=== PATIENT | female | born 1950 | race Hispanic/Latino ===

== ENCOUNTER → 2018-08-01 | Outpatient (CLI) | payer MEDICARE, OTHER | END | disposition home or self-care (01) | LOC: RAH 08:30 | PROVIDERS: ATTEND Family Medicine | DX: Z12.31 Encounter for screening mammogram for malignant neoplasm of breast (principal); I10 Essential (primary) hypertension | CPT/HCPCS: 77067 ==

== ENCOUNTER → 2018-08-30 | Outpatient (CLI) | payer MEDICARE, OTHER | END | disposition home or self-care (01) | LOC: RAH 13:39 | PROVIDERS: ATTEND Family Medicine | DX: N63.11 Unspecified lump in the right breast, upper outer quadrant (principal) | CPT/HCPCS: 76641; 77065 ==

== ENCOUNTER 2021-01-28 11:26 | Emergency (ER) | payer MEDICARE, OTHER ==
[2021-01-28 12:04] LABS: APPEARANCE,URINE Clear (CLEAR); BILIRUBIN,URINE Negative (NEGATIVE); COLOR,URINE Yellow (YELLOW); GLUCOSE, URINE (UA) Negative (NEGATIVE); KETONES,URINE Negative (NEGATIVE); LEUKOCYTE ESTERASE ,URINE Negative (NEGATIVE); NITRATE,URINE Negative (NEGATIVE); OCCULT BLOOD,URINE Small (NEGATIVE); PH,URINE 6.5 (5.0-8.0); PROTEIN,URINE Negative (NEGATIVE); UROBILINOGEN,URINE 0.2 mg/dL (0.2-1.0)
[2021-01-28 12:17] LABS: CREATININE 0.7 mg/dL (0.5-1.5); POTASSIUM 4.1 mmol/L (3.5-5.1)
[2021-01-28 12:22] LABS: BILIRUBIN,TOTAL 0.9 mg/dL (0.2-1.0); TOTAL PROTEIN, SERUM 7.7 g/dL (6.0-8.3)
[2021-01-28 12:25] LABS: BACTERIA,URINE Rare /HPF (None Seen); SQUAMOUS EPITHELIAL CELL,UR 0-2 /HPF (0-2); WBC,URINE 0-1 /HPF (0-1)
[2021-01-28 12:39] LABS: B-TYPE NATRIURETIC PEPTIDE 40 pg/mL (0-100)
[2021-01-28 12:42] LABS: BASOPHILS % (AUTO) 0.5 % (0.0-5.0); EOSINOPHILS % (AUTO) 1.9 % (0.0-8.0); HEMATOCRIT 40.7 % (36-48); MEAN CORPUSCULAR HEMOGLOBIN 29.5 pg (27.0-33.0); MEAN CORPUSCULAR HGB CONC 32.9 g/dL (32.0-36.0); MEAN CORPUSCULAR VOLUME 89.6 fL (79-99); MONOCYTES % (AUTO) 7.5 % (3.0-13.0); NEUTROPHILS % (AUTO) 69.9 % (40.0-77.0); PLATELET COUNT (AUTO) 235 K/uL (130-400); RED BLOOD CELL COUNT(AUTO) 4.54 MIL/uL (4.00-5.50); RED CELL DISTRIBUTION WIDTH 12.6 % (11.0-15.5); WHITE BLOOD COUNT (AUTO) 6.3 K/uL (4.8-10.8)
== END 2021-01-28 13:06 | disposition home or self-care (01) ==
LOC: EDH 11:26
DX: S29.012A Strain of muscle and tendon of back wall of thorax, initial encounter (principal); S39.012A Strain of muscle, fascia and tendon of lower back, initial encounter; B34.9 Viral infection, unspecified; X58.XXXA Exposure to other specified factors, initial encounter; Y93.89 Activity, other specified; Y92.89 Other specified places as the place of occurrence of the external cause; Y99.8 Other external cause status
CPT/HCPCS: 36415; 71045; 80053; 81001; 83880; 84484; 85025; 93005

== ENCOUNTER → 2021-02-17 | Outpatient (CLI) | payer OTHER | END | disposition home or self-care (01) | LOC: RAH 02-12 09:04 | PROVIDERS: ATTEND Family Medicine | DX: R10.32 Left lower quadrant pain (principal) | CPT/HCPCS: 76700 ==

== ENCOUNTER 2022-01-05 19:22 | Emergency (ER) | payer OTHER ==
[2022-01-05] MEDS ORDERED: LACTATED RINGERS 1000ML 1,000 ML IV ONE (19:30)
[2022-01-05] MEDS ORDERED: PANTOPRAZOLE 40 MG/VIAL IVP ONE (19:30)
[2022-01-05] MEDS ORDERED: ASPIRIN 81MG CHEW TAB PO ONE (19:30)
[2022-01-05 19:43] LABS: BASOPHILS % (AUTO) 0.4 % (0.0-5.0); EOSINOPHILS % (AUTO) 1.4 % (0.0-8.0); HEMATOCRIT 39.7 % (36-48); MEAN CORPUSCULAR HEMOGLOBIN 30.1 pg (27.0-33.0); MEAN CORPUSCULAR VOLUME 91.3 fL (79-99); MONOCYTES % (AUTO) 7.8 % (3.0-13.0); NEUTROPHILS % (AUTO) 71.2 % (40.0-77.0); PLATELET COUNT (AUTO) 201 K/uL (130-400); RED BLOOD CELL COUNT(AUTO) 4.35 MIL/uL (4.00-5.50); RED CELL DISTRIBUTION WIDTH 12.5 % (11.0-15.5); WHITE BLOOD COUNT (AUTO) 8.1 K/uL (4.8-10.8)
[2022-01-05 19:54] LABS: CREATININE 0.7 mg/dL (0.5-1.5); POTASSIUM 3.7 mmol/L (3.5-5.1)
[2022-01-05 20:00] LABS: ALBUMIN 3.6 g/dL (3.5-5.0); BILIRUBIN,TOTAL 0.3 mg/dL (0.2-1.0); TOTAL PROTEIN, SERUM 7.6 g/dL (6.0-8.3)
[2022-01-05 20:13] LABS: B-TYPE NATRIURETIC PEPTIDE 27 pg/mL (0-100)
[2022-01-05 20:13] LABS: APPEARANCE,URINE Clear (CLEAR); BILIRUBIN,URINE Negative (NEGATIVE); COLOR,URINE Yellow (YELLOW); GLUCOSE, URINE (UA) Negative (NEGATIVE); KETONES,URINE Negative (NEGATIVE); LEUKOCYTE ESTERASE ,URINE Small (NEGATIVE); NITRATE,URINE Negative (NEGATIVE); OCCULT BLOOD,URINE Small (NEGATIVE); PROTEIN,URINE Negative (NEGATIVE)
[2022-01-05 20:23] LABS: BACTERIA,URINE Rare /HPF (None Seen); RBC,URINE 0-1 /HPF (0-1); SQUAMOUS EPITHELIAL CELL,UR 0-2 /HPF (0-2); WBC,URINE 0-1 /HPF (0-1)
[2022-01-05] MEDS ORDERED: LIDOCAINE HCL 2% VISCOUS 15 ML UDCUP PO ONE (20:30)
[2022-01-05] MEDS ORDERED: DICYCLOMINE HCL 10 MG/5 ML ML PO ONE (20:30)
[2022-01-05] MEDS ORDERED: MAG/ALUM/SIMETH 30 ML UDCUP PO ONE (20:30)
[2022-01-05] MEDS ORDERED: FAMO20TA8 PO (21:18)
[2022-01-05 21:45] VITALS: BP 162/72
== END 2022-01-05 22:01 | disposition home or self-care (01) ==
LOC: EDH 19:22
DX: K29.70 Gastritis, unspecified, without bleeding (principal); R07.89 Other chest pain; R06.02 Shortness of breath; R00.2 Palpitations
CPT/HCPCS: 36415; 71045; 80053; 81001; 83880; 84484 ×2; 85025; 93005; 96361 ×2; 96374; 99285; C9113; J7120

== ENCOUNTER 2022-04-10 07:36 | Emergency (ER) | payer OTHER ==
[~2022-04-10] VITALS: Ht 160 cm; Wt 82.6 kg
[~2022-04-10 07:36] MED LIST: FAMO20TA8 PO
[2022-04-10 08:16] LABS: BASOPHILS % (AUTO) 0.3 % (0.0-5.0); EOSINOPHILS % (AUTO) 1.9 % (0.0-8.0); HEMATOCRIT 40.5 % (36-48); LYMPHOCYTES % (AUTO) 18.2 % (21.0-51.0); MEAN CORPUSCULAR HGB CONC 32.8 g/dL (32.0-36.0); MEAN CORPUSCULAR VOLUME 91.2 fL (79-99); MONOCYTES % (AUTO) 7.3 % (3.0-13.0); NEUTROPHILS % (AUTO) 72.1 % (40.0-77.0); PLATELET COUNT (AUTO) 199 K/uL (130-400); RED BLOOD CELL COUNT(AUTO) 4.44 MIL/uL (4.00-5.50); RED CELL DISTRIBUTION WIDTH 12.5 % (11.0-15.5); WHITE BLOOD COUNT (AUTO) 5.7 K/uL (4.8-10.8)
[2022-04-10 08:17] LABS: APPEARANCE,URINE Clear (CLEAR); BILIRUBIN,URINE Negative (NEGATIVE); COLOR,URINE Yellow (YELLOW); GLUCOSE, URINE (UA) Negative (NEGATIVE); KETONES,URINE Negative (NEGATIVE); LEUKOCYTE ESTERASE ,URINE Trace (NEGATIVE); NITRATE,URINE Negative (NEGATIVE); OCCULT BLOOD,URINE Small (NEGATIVE); PROTEIN,URINE Negative (NEGATIVE); UROBILINOGEN,URINE 0.2 mg/dL (0.2-1.0)
[2022-04-10 08:36] LABS: BACTERIA,URINE Rare /HPF (None Seen); RBC,URINE 0-1 /HPF (0-1); SQUAMOUS EPITHELIAL CELL,UR 0-2 /HPF (0-2); WBC,URINE 0-1 /HPF (0-1)
[2022-04-10 08:42] LABS: ALBUMIN 3.7 g/dL (3.5-5.0); BILIRUBIN,TOTAL 0.4 mg/dL (0.2-1.0); CREATININE 0.6 mg/dL (0.5-1.5); TOTAL PROTEIN, SERUM 7.7 g/dL (6.0-8.3)
[2022-04-10 08:57] VITALS: BP 147/71
== END 2022-04-10 09:05 | disposition home or self-care (01) ==
LOC: EDH 07:36
DX: R52 Pain, unspecified (principal); E78.00 Pure hypercholesterolemia, unspecified; I10 Essential (primary) hypertension; Z79.899 Other long term (current) drug therapy; Z98.890 Other specified postprocedural states
CPT/HCPCS: 36415; 80053; 81001; 83690; 84484; 85025; 93005

== ENCOUNTER → 2022-04-20 | Outpatient (CLI) | payer OTHER ==
[2022-04-20 08:20] LABS: INR 1.03 (0.85-1.15); PROTHROMBIN TIME 11.2 SEC (9.6-11.6)
[2022-04-20 08:21] LABS: PARTIAL THROMBOPLASTIN TIME 29.8 SEC (26.3-35.5)
== END | disposition home or self-care (01) ==
LOC: LAB 07:53
PROVIDERS: ATTEND Otolaryngology Plastic Surgery within the Head & Neck
DX: Z01.812 Encounter for preprocedural laboratory examination (principal); E04.1 Nontoxic single thyroid nodule
CPT/HCPCS: 36415; 85610; 85730

== ENCOUNTER → 2022-04-22 | Outpatient (CLI) | payer OTHER ==
[~2022-04-22] MED LIST changes: +LIDOCAINE HCL 1% MDV 50ML VIAL ONE
== END | disposition home or self-care (01) ==
LOC: RAH 07:30
PROVIDERS: ATTEND Otolaryngology Plastic Surgery within the Head & Neck
DX: E04.1 Nontoxic single thyroid nodule (principal); Z79.82 Long term (current) use of aspirin; Z90.49 Acquired absence of other specified parts of digestive tract; Z98.49 Cataract extraction status, unspecified eye; Z98.51 Tubal ligation status; Z98.890 Other specified postprocedural states
CPT/HCPCS: 10005; 88173; 88305; J3490

== ENCOUNTER 2023-06-25 08:12 | Inpatient (IN) | payer OTHER ==
[~2023-06-25] VITALS: Ht 160 cm; Wt 85.5 kg
[~2023-06-25 08:12] MED LIST changes: -LIDOCAINE HCL 1% MDV 50ML VIAL ONE
[2023-06-25] MEDS ORDERED: CEFTRIAXONE 2GM VIAL IVPB ONE (08:30)
[2023-06-25 08:43] LABS: BASOPHILS # (AUTO) 0.03 K/uL (0.00-0.20); BASOPHILS % (AUTO) 0.2 % (0.0-5.0); EOSINOPHILS # (AUTO) 0.04 K/uL (0.00-0.70); EOSINOPHILS % (AUTO) 0.3 % (0.0-8.0); HEMATOCRIT 38.1 % (36-48); IMMATURE GRANULOCYTE ABSOLUTE 0.06 K/uL (0-1); LYMPHOCYTES # (AUTO) 0.6 K/uL (1.0-4.8); LYMPHOCYTES % (AUTO) 4.3 % (21.0-51.0); MEAN CORPUSCULAR HEMOGLOBIN 29.5 pg (27.0-33.0); MEAN CORPUSCULAR HGB CONC 33.1 g/dL (32.0-36.0); MEAN CORPUSCULAR VOLUME 89.2 fL (79-99); MONOCYTES # (AUTO) 0.2 K/uL (0.1-1.0); NEUTROPHILS # (AUTO) 13.6 K/uL (1.8-7.7); NEUTROPHILS % (AUTO) 93.8 % (40.0-77.0); PLATELET COUNT (AUTO) 194 K/uL (130-400); RED BLOOD CELL COUNT(AUTO) 4.27 MIL/uL (4.00-5.50); RED CELL DISTRIBUTION WIDTH 13.5 % (11.0-15.5); WHITE BLOOD COUNT (AUTO) 14.5 K/uL (4.8-10.8)
[2023-06-25 08:55] LABS: INR 0.99 (0.85-1.15); PROTHROMBIN TIME 11.5 SEC (9.6-11.6)
[2023-06-25 08:57] LABS: PARTIAL THROMBOPLASTIN TIME 26.9 SEC (26.3-35.5)
[2023-06-25] MEDS ORDERED: ACETAMINOPHEN 500 MG TABLET PO ONE (09:00)
[2023-06-25] MEDS ORDERED: 0.9%NACL 1000ML 1,572 ML IV ONE (09:00)
[2023-06-25 09:08] LABS: CREATININE 0.9 mg/dL (0.5-1.5); POTASSIUM 3.5 mmol/L (3.5-5.1)
[2023-06-25 09:13] LABS: ALBUMIN 3.6 g/dL (3.5-5.0); BILIRUBIN,TOTAL 1.3 mg/dL (0.2-1.0)
[2023-06-25 09:24] LABS: APPEARANCE,URINE CLOUDY (CLEAR); BILIRUBIN,URINE NEGATIVE (NEGATIVE); COLOR,URINE YELLOW (YELLOW); GLUCOSE, URINE (UA) NEGATIVE (NEGATIVE); KETONES,URINE 5 mg/dL (NEGATIVE); LEUKOCYTE ESTERASE ,URINE 500 Leu/uL (NEGATIVE); NITRATE,URINE 2+ (NEGATIVE); OCCULT BLOOD,URINE LARGE (NEGATIVE); PH,URINE 5.5 (5.0-8.0); PROTEIN,URINE 200 mg/dL (NEGATIVE); UROBILINOGEN,URINE 0.2 mg/dL (0.2-1.0)
[2023-06-25 09:34] LABS: ADD UA MICROSCOPIC YES
[2023-06-25 09:45] LABS: BACTERIA,URINE MOD /HPF (None Seen); MUCUS,URINE RARE LPF (None Seen); SQUAMOUS EPITHELIAL CELL,UR RARE /HPF (0-2); WBC CLUMP FEW /HPF (0-1); WBC,URINE 51-100 /HPF (0-1)
[2023-06-25 09:52] LABS: SARS-CoV-2, RNA, NAAT NEGATIVE SARS CoV-2 (NEGATIVE)
[2023-06-25 09:56] LABS: INFLUENZA TYPE A Negative For Type A (NEGATIVE); INFLUENZA TYPE B Negative For Type B (NEGATIVE)
[2023-06-25] MEDS ORDERED: POTASSIUM CHLORIDE 20MEQ/100ML 100 ML IV PRN (10:30)
[2023-06-25] MEDS ORDERED: ALBUTEROL 0.083% 2.5 MG/3 ML INH IH PRN (10:30)
[2023-06-25] MEDS ORDERED: CLONIDINE HCL 0.1 MG TABLET PO PRN (10:30)
[2023-06-25] MEDS ORDERED: ACETAMINOPHEN 325 MG TAB PO PRN (10:30)
[2023-06-25] MEDS ORDERED: ONDANSETRON 4MG INJ IVP PRN (10:30)
[2023-06-25] MEDS ORDERED: LACTULOSE 20 GM/30 ML UDCUP PO PRN (10:30)
[2023-06-25] MEDS ORDERED: DOCUSATE SODIUM 100 MG CAP PO PRN ×2 (10:30)
[2023-06-25] MEDS ORDERED: LABETALOL 20MG SYG IV PRN (10:30)
[2023-06-25] MEDS ORDERED: HYDRALAZINE 20MG/ML VIAL IV PRN (10:30)
[2023-06-25] MEDS ORDERED: KCL 20 MEQ ERTAB PO PRN (10:30)
[2023-06-25] MEDS ORDERED: MAGNESIUM 2GM PREMIX 50ML 50 ML IV PRN (10:30)
[2023-06-25] MEDS ORDERED: ACETAMINOPHEN 650 MG SUPPOSITORY RC PRN (10:30)
[2023-06-25] MEDS: 0.9%NACL 1000ML 1,000 ML IV SCH ×2 (11:09→21:01)
[2023-06-25] MEDS: INSULIN HUMULIN R 100 UNIT/ML 3ML SQ SCH ×3 (11:30→20:55)
[2023-06-25 11:36] VITALS: PULSE 72; RESP 18; O2SAT 95
[2023-06-25 12:21] VITALS: TEMP 100.2
[2023-06-25] MEDS ORDERED: DILT120C12 PO (13:42)
[2023-06-25] MEDS ORDERED: RIVA20TA PO (13:42)
[2023-06-25] MEDS ORDERED: OLME5TAB29 PO (13:42)
[2023-06-25] MEDS ORDERED: ROSU10TA28 PO (13:42)
[2023-06-25 16:00] VITALS: BP 116/61; PULSE 57; RESP 16
[2023-06-25 20:12] VITALS: BP 124/62; PULSE 57; RESP 20
[2023-06-25 21:00] VITALS: O2SAT 98
[2023-06-25] MEDS ORDERED: NON-FORMULARY MEDICATION 1 EACH (Rosuvastatin Calcium 1 TAB) PO SCH (21:00)
[2023-06-25] MEDS: ATORVASTATIN 20 MG TABLET PO SCH (21:01)
[2023-06-26] VITALS (8 sets, daily range): BP systolic 127–155; BP diastolic 55–77; PULSE 68–76; RESP 16–20; O2SAT 96–98
[2023-06-26 05:07] LABS: HEMATOCRIT 33.4 % (36-48); MEAN CORPUSCULAR HEMOGLOBIN 29.5 pg (27.0-33.0); MEAN CORPUSCULAR HGB CONC 33.5 g/dL (32.0-36.0); MEAN CORPUSCULAR VOLUME 87.9 fL (79-99); RED BLOOD CELL COUNT(AUTO) 3.8 MIL/uL (4.00-5.50); RED CELL DISTRIBUTION WIDTH 13.7 % (11.0-15.5); WHITE BLOOD COUNT (AUTO) 10.8 K/uL (4.8-10.8)
[2023-06-26 05:27] LABS: CREATININE 0.6 mg/dL (0.5-1.5); MAGNESIUM 1.8 mg/dL (1.80-2.40); PHOSPHORUS 3.1 mg/dL (2.5-4.9); POTASSIUM 3.5 mmol/L (3.5-5.1); THYROID STIMULATING HORMONE 0.34 uIU/mL (0.36-3.74)
[2023-06-26] MEDS: 0.9%NACL 1000ML 1,000 ML IV SCH ×3 (05:38→20:16)
[2023-06-26] MEDS: INSULIN HUMULIN R 100 UNIT/ML 3ML SQ SCH ×4 (06:25→19:53)
[2023-06-26] MEDS ORDERED: DILTIAZEM HCL PO SCH (09:00)
[2023-06-26] MEDS ORDERED: ENOXAPARIN SODIUM 40 MG/0.4 ML SYRINGE SQ SCH (09:00)
[2023-06-26] MEDS: OLMESARTAN MEDOXOMIL PO SCH (09:00)
[2023-06-26] MEDS: CEFTRIAXONE 1G VIAL IV SCH (09:18)
[2023-06-26] MEDS: RIVAROXABAN 20 MG TABLET PO SCH (09:18)
[2023-06-26] MEDS: PANTOPRAZOLE 40 MG TAB DR PO SCH (09:18)
[2023-06-26] MEDS: DILTIAZEM 120MG SR CAP PO SCH (09:18)
[2023-06-26] MEDS: ATORVASTATIN 20 MG TABLET PO SCH (20:15)
[2023-06-27] VITALS: BP 141/64; PULSE 62; RESP 18
[2023-06-27] MEDS: 0.9%NACL 1000ML 1,000 ML IV SCH ×3 (01:54→12:30)
[2023-06-27 04:00] VITALS: BP 137/66; PULSE 63; RESP 18
[2023-06-27 05:41] LABS: HEMATOCRIT 33.1 % (36-48); MEAN CORPUSCULAR HEMOGLOBIN 29.2 pg (27.0-33.0); MEAN CORPUSCULAR HGB CONC 32.6 g/dL (32.0-36.0); MEAN CORPUSCULAR VOLUME 89.5 fL (79-99); RED BLOOD CELL COUNT(AUTO) 3.7 MIL/uL (4.00-5.50); RED CELL DISTRIBUTION WIDTH 13.6 % (11.0-15.5); WHITE BLOOD COUNT (AUTO) 5.4 K/uL (4.8-10.8)
[2023-06-27 05:52] LABS: CREATININE 0.6 mg/dL (0.5-1.5); MAGNESIUM 2.2 mg/dL (1.80-2.40); POTASSIUM 3.2 mmol/L (3.5-5.1)
[2023-06-27] MEDS: INSULIN HUMULIN R 100 UNIT/ML 3ML SQ SCH ×3 (06:16→16:30)
[2023-06-27 07:44] VITALS: O2SAT 97
[2023-06-27 08:00] VITALS: BP 135/60; PULSE 57; RESP 18
[2023-06-27] MEDS: CEFTRIAXONE 1G VIAL IV SCH (08:26)
[2023-06-27] MEDS: RIVAROXABAN 20 MG TABLET PO SCH (08:28)
[2023-06-27] MEDS: PANTOPRAZOLE 40 MG TAB DR PO SCH (08:28)
[2023-06-27] MEDS: OLMESARTAN MEDOXOMIL PO SCH (08:28)
[2023-06-27] MEDS: DILTIAZEM 120MG SR CAP PO SCH (08:40)
[2023-06-27] MEDS: POTASSIUM CHLORIDE 10% ELIXIR 20 MEQ/15 ML UDCUP PO PRN ×2 (09:44→13:07)
[2023-06-27 12:00] VITALS: BP 151/75; PULSE 64; RESP 16
[2023-06-27 16:00] VITALS: BP 149/75; PULSE 64; RESP 17
== END 2023-06-27 17:30 | disposition home or self-care (01) | DRG 872 ==
LOC: EDH 08:12 → EDHIP 10:18 → OBSVTOIN 10:18 → 3CH 12:55
PROVIDERS: ADMIT Internal Medicine Critical Care Medicine; ATTEND Internal Medicine Critical Care Medicine
DX: A41.51 Sepsis due to Escherichia coli [E. coli] (principal); N30.00 Acute cystitis without hematuria; E78.00 Pure hypercholesterolemia, unspecified; Z20.822 Contact with and (suspected) exposure to COVID-19; I48.91 Unspecified atrial fibrillation; I10 Essential (primary) hypertension; Z85.3 Personal history of malignant neoplasm of breast
CPT/HCPCS: 36415; 71045; 80048; 80053; 81001; 82550; 82948; 83605; 83735; 83874; 84100; 84443; 84484; 85025; 85027; 85610; 85730; 87040; 87077; 87088; 87186; 87635; 87804; 93005; 97039; C9803; G0378; J0696; J3475; G8980-CI; G8983-CI

== ENCOUNTER → 2023-11-03 | Outpatient (CLI) | payer OTHER ==
[~2023-11-03] MED LIST changes: +DILT120C12 PO; +OLME5TAB29 PO; +RIVA20TA PO; +ROSU10TA28 PO
== END | disposition home or self-care (01) ==
LOC: RAH 08:53
PROVIDERS: ATTEND Family Medicine
DX: D25.9 Leiomyoma of uterus, unspecified (principal); R31.9 Hematuria, unspecified
CPT/HCPCS: 76700; 76857

== ENCOUNTER → 2024-05-01 | Outpatient (CLI) | payer OTHER ==
[~2024-05-01] MED LIST changes: -ROSU10TA28 PO; +ROSU10TA72 PO
== END | disposition home or self-care (01) ==
LOC: RAH 13:26
PROVIDERS: ATTEND Family Medicine
DX: K57.30 Diverticulosis of large intestine without perforation or abscess without bleeding (principal); R31.9 Hematuria, unspecified; Z90.49 Acquired absence of other specified parts of digestive tract
CPT/HCPCS: 74176